=== PATIENT | male | born 1970 | race Caucasian/White ===

== ENCOUNTER 2017-03-04 12:55 | Emergency (ER) | payer OTHER ==
[2017-03-04 14:15] VITALS: BP 110/64; PULSE 71; TEMP 98.3; BMI 27.3
--- NOTE | 2017-03-04 14:16 | PDOC ---
Rapid Medical Evaluation Time Seen by Provider: 03/04/17 14:13 Medical Evaluation: Allergies Allergy/AdvReac Type Severity Reaction Status Date / Time No Known Allergies Allergy Verified 03/04/17 14:13 03/04/17 14:13 I have performed a brief in-person evaluation of this patient. The patient presents with a chief complaint of: R eye pain s/p accidentally poking self in eye w/ finger yesterday Pertinent physical exam findings:R conjunctival erythema I have ordered the following:nothing The patient will proceed to the ED for further evaluation.
[2017-03-04] MEDS ORDERED: ERYTHROMYCIN 0.5% OPHTHALMIC OINTMENT 3.5 GM TUBE OD STA (15:11)
[2017-03-04] MEDS ORDERED: ERYTHROMYCIN 0.5% OPHTHALMIC OINTMENT 3.5 GM TUBE ONE (15:15)
--- NOTE | 2017-03-04 15:16 | PDOC ---
History of Present Illness - General Chief Complaint: Eye Problem Stated Complaint: EYE PAIN Time Seen by Provider: 03/04/17 14:13 History Source: Patient Exam Limitations: No Limitations - History of Present Illness Initial Comments: 03/04/17 15:12 46 yr male with pain and tearing to right eye after accidentaly poking himself in the eye yesterday. tetanus is UTD. Past History - Past Medical History Allergies/Adverse Reactions: Allergies Allergy/AdvReac Type Severity Reaction Status Date / Time No Known Allergies Allergy Verified 03/04/17 14:13 Home Medications: Ambulatory Orders Erythromycin 0.5% Eye Ointment [Erythromycin 0.5% Eye Ointment -] 1 applic OD TID #1 tube 03/04/17 COPD: No Other medical history: DENIES. - Suicide/Smoking/Psychosocial Hx Smoking History: Current every day smoker Have you smoked in the past 12 months: Yes Number of Cigarettes Smoked Daily: 10 Information on smoking cessation initiated: No *Physical Exam - Vital Signs Last Vital Signs Temp Pulse Resp BP Pulse Ox 98.3 F 71 19 110/64 99 03/04/17 14:13 03/04/17 14:13 03/04/17 14:13 03/04/17 14:13 03/04/17 14:13 - Physical Exam General Appearance: Yes: Nourished, Appropriately Dressed HEENT: positive: EOMI, NUSRAT, TMs Normal, Pharynx Normal, Other (right eye with redness, tearing ) Neck: positive: Supple. negative: Tender Respiratory/Chest: positive: Lungs Clear, Normal Breath Sounds Cardiovascular: positive: Regular Rhythm, Regular Rate Procedures - Eye Procedure Alcaine Drops Administered: Yes (2 drops) Antibiotic Oinment/Drps Admin: right eye (erythromycin) Progress: 03/04/17 15:13 right eye with abrasion noted on fluroscein stain *DC/Admit/Observation/Transfer Diagnosis at time of Disposition: Corneal abrasion Qualifiers: Encounter type: initial encounter Laterality: right Qualified Code(s): S05.01XA - Injury of conjunctiva and corneal abrasion without foreign body, right eye, initial encounter - Discharge Dispostion Disposition: HOME Condition at time of disposition: Good - Prescriptions Prescriptions: Erythromycin 0.5% Eye Ointment [Erythromycin 0.5% Eye Ointment -] 1 applic OD TID #1 tube - Referrals - Patient Instructions Printed Discharge Instructions: DI for Corneal Abrasion Additional Instructions: apply eye ointment as directed for 7 days follow with the opthomologist Dr. Omalley tomorrow or thursday call [phone] to make appointment, tell them you were in the ER take motrin or tylenol for pain as needed avoid bright lights watching tv or reading small print - Post Discharge Activity
== END 2017-03-04 15:17 | disposition home or self-care (01) ==
LOC: JERFT 12:55
DX: S05.01XA Injury of conjunctiva and corneal abrasion without foreign body, right eye, initial encounter (principal); Y33.XXXA Other specified events, undetermined intent, initial encounter; Y93.89 Activity, other specified; Y92.89 Other specified places as the place of occurrence of the external cause
CPT/HCPCS: 99281-25